=== PATIENT | female | born 2000 | race Caucasian/White ===

== ENCOUNTER → 2023-10-20 09:50 | Outpatient (REF) | payer OTHER, SELFPAY | LOC: RAD 09:50 | PROVIDERS: ATTENDING PHYSICIAN Obstetrics & Gynecology; FAMILY PHYSICIAN Family Medicine | DX: N94.6 Dysmenorrhea, unspecified (principal) | CPT/HCPCS: 76856 ==

== ENCOUNTER 2024-04-01 10:16 | Emergency (ER) | payer OTHER, SELFPAY ==
[2024-04-01 10:17] VITALS: BP 125/89
[2024-04-01 10:53] LABS: % Basophils 0.6 % (0-2); % Eosinophils 1.9 % (0-6); % Immature Granulocytes 0.3 % (0-0.5); % Lymphocytes 23.7 % (20.5-51.1); % Monocytes 10.6 % (1.7-9.3); % Neutrophils 62.9 % (42.2-75.2); Absolute Eosinophils 0.1 10^3/uL (0-0.7); Absolute Lymphocytes 1.5 10^3/uL (1.2-3.4); Absolute Monocytes 0.7 10^3/uL (0.1-0.6); Hemoglobin 13.3 g/dL (12.0-16.0); Mean Corp Hgb Conc. 34.1 g/dL (33.0-37.0); Mean Corpuscular Hgb 29.8 pg (27.0-31.0); Mean Corpuscular Volume 87.2 fL (81.0-99.0); Mean Platelet Volume 10.5 fL (7.4-10.4); Nucleated Red Blood Cells % 0 %; Platelet Count 227 10^3/uL (130-400); Red Blood Cell Count 4.47 10^6/uL (4.20-5.40); Red Cell Dist. Width 11.9 % (11.5-14.5); White Blood Cell Count 6.3 10^3/uL (4.8-10.8)
[2024-04-01 11:01] LABS: HCG, Serum Qualitative Screen Negative
[2024-04-01 11:04] LABS: ALT (SGPT) 20 U/L (0-35); AST (SGOT) 29 U/L (14-36); Albumin 4.7 g/dl (3.5-5.0); Alkaline Phosphatase 61 U/L (38-126); Blood Urea Nitrogen 12 mg/dl (7-17); Calcium 9.9 mg/dl (8.4-10.2); Carbon Dioxide 26 mmol/L (22-30); Chloride 103 mmol/L (98-107); Glucose 77 mg/dl (70-99); Potassium 4.3 mmol/L (3.5-5.1); Sodium 138 mmol/L (135-145); Total Bilirubin 0.5 mg/dl (0.2-1.3); Total Protein 7.2 g/dl (6.3-8.2); eGFR > 60.00
[2024-04-01 11:17] LABS: Urine Albumin Negative (Neg - Trace); Urine Bilirubin Negative (Negative); Urine Character Clear (Clear); Urine Color Yellow; Urine Glucose Negative (Negative); Urine Ketone Negative (Negative); Urine Leukocyte Negative (Negative); Urine Nitrite Negative (Negative); Urine Occult Blood Negative (Negative); Urine Urobilinogen Negative (Neg - 1+); Urine pH 6.5 (5.0-9.0)
--- NOTE | 2024-04-01 12:21 | ED.GENMED ---
History of Present Illness
General
Chief Complaint: Abdominal Pain
Source: patient
Exam Limitations: none
Time Seen by Provider: 04/01/24 12:12
Nursing documentation reviewed up to this point in time: agreed with
History of Present Illness
History of Present Illness:
23 yo female sent here from PCP office to r/o appendicitis. Pt states she developed mild pain across her lower abdomen yesterday 05/15, same pain woke her at 6:45 this a.m. and by 7:45 was 7/10, took Advil, got worse for about an hour, and has been
waxing and waning since, now 07/13 and seems worse in RLQ. Denies fever/chills, n/v/d/c. Denies UTI symptoms.
LMP ended 2 weeks ago, IUD placed 01/2024, started Monjaro one month ago, takes Nurtec PRN.
Past History
Past History
ED Past Medical History: None
ED Past Surgical History: None
Social History
Tobacco: Non-smoker
Alcohol: Occasional
Personal: Single
Living: with family
Review of Systems
Review of Systems
Allergies reviewed?: Yes
All Other Systems: ROS reviewed and negative except as documented in HPI and ROS
Constitutional: Denies fever
Respiratory: Denies trouble breathing
Cardiac: Denies chest pain
ABD/GI: Reports abdominal pain; Denies nausea, vomiting, diarrhea, constipated, bloody stools, black stools or anorexia
: Denies dysuria, frequency or difficulty voiding
Musculoskeletal: Reports no symptoms
Skin: Reports no symptoms
Neurological: Reports no symptoms
Phy Exam
Physical Exam
Physical Exam:
GENERAL: No acute distress. A&Ox3.
CONSTITUTIONAL: Afebrile.
EYES: clear, conjunctivae normal
ENMT: moist mucus membranes
RESPIRATORY: Regular respirations, nonlabored, lungs clear.
CARDIOVASCULAR: Regular rate and rhythm, no murmurs, no rubs.
GI: Soft, tender suprapubic to RLQ, no rebound, normal BS
MUSCULOSKELETAL: Moves with ease. Well perfused.
SKIN: Warm, dry, pink
PSYCH: Normal mood and affect. Well kept, interactive and appropriate
NEUROLOGIC: Awake, alert and oriented. No focal neurological deficits
Course
Orders/Labs/Results
Orders:
Orders
04/01/24 10:21
Test Result ONCE
04/01/24 10:39
Complete Blood Count/With Diff Urgent
Comprehensive Metabolic Panel Urgent
HCG, Serum Qualitative Screen Urgent
Lipase Urgent
Comment: ADD ON
04/01/24 10:42
Urinalysis Reflex To Culture Urgent
Date Specimen was Collected: 04/01/24
Time Specimen was Collected: 10:20
04/01/24 11:51
Add On- LAB Urgent
Tests Added?: lipase
04/01/24 12:20
CT Abd/Pel (IV only)-DH only Urgent
Comment:
Reason For Exam: Pain mid to R lower abdomen
Abnormal Lab Results
04/01/24
10:39
MPV 10.5 H fL
(7.4-10.4)
Absolute Monos (auto) 0.7 H 10^3/uL
(0.1-0.6)
Monocytes % 10.6 H %
(1.7-9.3)
04/01/24 10:39
04/01/24 10:39
Vital Signs
Initial and Last Documented VS:
Initial Vital Signs
Temp Pulse Resp BP Pulse Ox
98.2 F 87 16 125/89 99
04/01/24 10:17 04/01/24 10:17 04/01/24 10:17 04/01/24 10:17 04/01/24 10:17
Last Documented Vital Signs
Temp Pulse Resp BP Pulse Ox
98.2 F 82 16 113/75 100
04/01/24 10:17 04/01/24 16:19 04/01/24 10:17 04/01/24 16:19 04/01/24 16:19
MDM/Problems Addressed
Differential Diagnosis Includes:
appendicitis, ovarian cyst, middleschmertz
MDM/Problems Addressed:
23 yo female sent here from PCP office to r/o appendicitis. Pt states she developed mild pain across her lower abdomen yesterday 05/15, same pain woke her at 6:45 this a.m. and by 7:45 was 10/12, took Advil, got worse for about an hour, and has been
waxing and waning since, now 07/13 and seems worse in RLQ. Denies fever/chills, n/v/d/c. Denies UTI symptoms.
LMP ended 2 weeks ago, IUD placed 01/2024, started Monjaro one month ago, takes Nurtec PRN.
Afebrile, NAD
Abd: mild tenderness mid lower abdomen to RLQ, no rebound
11:30 a.m.
CBC normal
CMP normal
HCG neg
U/A neg
4:[address] abd/pelvis with IV contrast radiology report read: IMPRESSION:
No acute findings in the abdomen or pelvis, specifically no evidence of acute appendicitis.
Retroflexed uterus with intrauterine device in appropriate position.
Pt is pain free.
Pt ambulated out with normal gait at discharge
*Critical Care Note
Total Time (30-74mins, 75-104mins- exclusive of procedures): Not Applicable
ED Attending Note
-
Portions of this chart may have been created with voice recognition software.� Occasional wrong word or��sound alike� substitutions may have occurred due to the inherent limitations of voice recognition software.
Discharge Plan
Departure
Patient Disposition: Home (Routine Discharge)
Date of Disposition: 04/01/24
Time of Disposition: 16:00
Patient with high blood pressure during this ER visit?: No
Condition: Good
Discharge Problem:
Abdominal pain
Instructions: Abdominal Pain
Prescriptions:
No Action
No Current Medications
0
Referrals:
Kristin Jimenez MD [Family Provider] - As needed
Activity Restrictions/Additional Instructions:
As we discussed, nothing worrisome in your workup here today, specifically no sign of appendicitis or abnormality of the ovaries/uterus or rest of the abdomen.
Ibuprofen 600 mg, with food, every 6 hours as needed for pain.
Interventions
Interventions:
*Risk Screen - Suicide Last Done: 04/01/24 10:20
*General Assessment Last Done: 04/01/24 16:20
*Neglect/Abuse Screening Last Done: 04/01/24 10:20
ED- Fall Risk Assessment Last Done: 04/01/24 16:20
*ED COVID-19 Vaccine History Last Done: 04/01/24 14:19
*Nursing Disposition Last Done: 04/01/24 16:20
GB-Fqtmta-Edvfcvdwdw Assessment Last Done: 04/01/24 14:12
Discharge Date and Time
Discharge Date/Time: 04/01/24 16:28
Print Language: YAKUT
[2024-04-01 12:23] LABS: Lipase 265 U/L (23-300)
[2024-04-01 12:43] VITALS: BMI 27.4
[2024-04-01 16:19] VITALS: BP 113/75
== END 2024-04-01 16:28 | disposition home or self-care (01) ==
LOC: EMR 10:16
PROVIDERS: Emergency Medicine; EMERGENCY PHYSICIAN Emergency Medicine; FAMILY PHYSICIAN Family Medicine
DX: R10.30 Lower abdominal pain, unspecified (principal); Z97.5 Presence of (intrauterine) contraceptive device
CPT/HCPCS: 99284; 74177; 80053; 81003; 83690; 84703; 85025; Q9967

== ENCOUNTER 2024-04-23 00:34 | Emergency (ER) | payer OTHER, SELFPAY ==
[2024-04-23 00:43] VITALS: BP 125/87
[2024-04-23] MEDS: ZOFRAN 4 MG IV (01:18)
[2024-04-23] MEDS: NSS 1000 IV (01:18)
[2024-04-23 01:19] VITALS: BMI 24.1
[2024-04-23 01:20] VITALS: BP 133/96
[2024-04-23 01:40] LABS: HCG, Serum Qualitative Screen Negative
[2024-04-23 01:42] LABS: INR 1.17; PT 15.2 Sec (11.4-14.6)
[2024-04-23 01:45] LABS: D-Dimer 0.28 ug/mlFEU (0.00-0.50)
[2024-04-23 01:51] LABS: % Basophils 0.4 % (0-2); % Immature Granulocytes 0.4 % (0-0.5); % Lymphocytes 10.6 % (20.5-51.1); % Neutrophils 80.6 % (42.2-75.2); ALT (SGPT) 16 U/L (0-35); AST (SGOT) 23 U/L (14-36); Absolute Lymphocytes 1.1 10^3/uL (1.2-3.4); Absolute Monocytes 0.8 10^3/uL (0.1-0.6); Absolute Neutrophils 8.4 10^3/uL (1.4-6.5); Albumin 5.8 g/dl (3.5-5.0); Alkaline Phosphatase 86 U/L (38-126); Blood Urea Nitrogen 9 mg/dl (7-17); Calcium 10.5 mg/dl (8.4-10.2); Carbon Dioxide 8 mmol/L (22-30); Chloride 104 mmol/L (98-107); Estimated Creatinine Clearance 116 ml/min; Glucose 94 mg/dl (70-99); Hematocrit 46.4 % (37.0-47.0); Hemoglobin 15.5 g/dL (12.0-16.0); Magnesium 1.7 mg/dl (1.6-2.3); Mean Corp Hgb Conc. 33.4 g/dL (33.0-37.0); Mean Corpuscular Hgb 28.9 pg (27.0-31.0); Mean Corpuscular Volume 86.6 fL (81.0-99.0); Mean Platelet Volume 11.4 fL (7.4-10.4); Nucleated Red Blood Cells % 0 %; Platelet Count 298 10^3/uL (130-400); Potassium 4.7 mmol/L (3.5-5.1); Red Blood Cell Count 5.36 10^6/uL (4.20-5.40); Red Cell Dist. Width 11.9 % (11.5-14.5); Sodium 142 mmol/L (135-145); White Blood Cell Count 10.4 10^3/uL (4.8-10.8); eGFR > 60.00
[2024-04-23 01:56] LABS: Troponin I < 0.012 ng/ml
[2024-04-23 02:00] VITALS: BP 129/80
--- NOTE | 2024-04-23 02:00 | ED.GENMED ---
History of Present Illness
General
Chief Complaint: Chest Pain
Source: patient and family
Exam Limitations: none
Time Seen by Provider: 04/23/24 00:52
Nursing documentation reviewed up to this point in time: agreed with
History of Present Illness
History of Present Illness:
Pleasant 23-year-old female who presents with nausea and vomiting. Patient does report some central chest pain. She states that after vomiting she felt a burning going up into her chest. She has been vomiting since Wednesday. Tonight she saw
bloody specks in her vomitus. Denies fever or chills. Has been fully immunized for COVID and flu
Past History
Past History
ED Past Medical History: None
ED Past Surgical History: None
Social History
Tobacco: Non-smoker
Alcohol: Occasional
Personal: Single
Living: with family
Review of Systems
Review of Systems
Allergies reviewed?: Yes
All Other Systems: ROS reviewed and negative except as documented in HPI and ROS
Constitutional: Reports no symptoms
EENT: Reports no symptoms
Respiratory: Reports no symptoms
Cardiac: Reports chest pain
ABD/GI: Reports nausea and vomiting; Denies diarrhea, bloody stools or black stools
: Reports no symptoms
Musculoskeletal: Reports no symptoms
Skin: Reports no symptoms
Neurological: Reports no symptoms
Endocrine: Reports no symptoms
Hematologic/Lymphatic: Reports no symptoms
Psychiatric: Reports no symptoms
Phy Exam
General Physical Exam
General Presentation: mild distress
General age: appears stated age
General Skin: warm and dry
General Habitus: normal
General Mental: alert
General Hydration: appears well hydrated
ENT Exam
ENT Exam: EOMI, pharynx normal, neck supple and normocephalic
Eye Exam
Eye Exam: PERRL, cornea clear and conjunctiva normal
Cardiovascular Exam
Cardiovascular Exam: regular rate/rhythm, no edema, no murmur and normal peripheral pulses
Pulmonary Exam
Pulmonary Exam: lungs clear, no respiratory distress, no rales, no crackles, no rhonchi, no stridor, no wheezing and no cough
Gastrointestinal Exam
Gastrointestinal Exam: normal bowel sounds, non tender, soft, no organomegaly, no pulsatile mass and non distended
Neurological Exam
Neurological Exam: alert, oriented x3, no motor deficits and speech normal
Musculoskeletal Exam
Musculoskeletal Exam: full ROM and no edema
Skin Exam
Skin Exam: normal color, warm/dry, no rash and no petechia
Psychiatric Exam
Psychiatric Exam: normal mood/affect
Scores
Heart Score for Chest Pain Patients
STEMI patient?: Not applicable
Course
Orders/Labs/Results
Orders:
Orders
04/23/24 00:37
Electrocardiogram (*1) Urgent
Reason for Study: Chest Pain
04/23/24 00:38
EKG- Treatment ONCE
04/23/24 00:53
Test Result ONCE
04/23/24 01:10
Complete Blood Count/With Diff Urgent
Comprehensive Metabolic Panel Urgent
D-Dimer Urgent
HCG, Serum Qualitative Screen Urgent
Magnesium Urgent
PTT Urgent
Prothrombin Time Urgent
TSH Urgent
Troponin I Urgent
04/23/24 01:17
0.9% Sodium Chloride 1000 ml [Nss] 1,000 ml IV BOLUS
04/23/24 01:18
Ondansetron Injectable [Zofran] 4 mg IV NOW STA
04/23/24 01:59
Metoclopramide [Reglan] 10 mg IV NOW STA
Sucralfate Suspension [Carafate Suspension] 1 gm PO NOW STA
04/23/24 02:16
COVID-19 Antigen Urgent
Source: Nasal Swab
Influenza A+B Rapid Molecular Urgent
[facility] Source: Nasal Swab
Specimen Description:
Abnormal Lab Results
04/23/24
01:10
MPV 11.4 H fL
(7.4-10.4)
Absolute Neuts (auto) 8.4 H 10^3/uL
(1.4-6.5)
Absolute Lymphs (auto) 1.1 L 10^3/uL
(1.2-3.4)
Absolute Monos (auto) 0.8 H 10^3/uL
(0.1-0.6)
Neutrophils % 80.6 H %
(42.2-75.2)
Lymphocytes % 10.6 L %
(20.5-51.1)
PT 15.2 H Sec
(11.4-14.6)
Carbon Dioxide 8 L* mmol/L
(22-30)
Calcium 10.5 H mg/dl
(8.4-10.2)
Total Protein 9.0 H g/dl
(6.3-8.2)
Albumin 5.8 H g/dl
(3.5-5.0)
04/23/24 01:10
04/23/24 01:10
Vital Signs
Initial and Last Documented VS:
Initial Vital Signs
Temp Pulse Resp BP Pulse Ox
98.3 F 115 18 125/87 99
04/23/24 00:43 04/23/24 00:43 04/23/24 00:43 04/23/24 00:43 04/23/24 00:43
Last Documented Vital Signs
Temp Pulse Resp BP Pulse Ox
98.3 F 124 17 136/77 100
04/23/24 00:43 04/23/24 03:30 04/23/24 03:30 04/23/24 03:00 04/23/24 03:30
*Critical Care Note
Total Time (30-74mins, 75-104mins- exclusive of procedures): Not Applicable
Update Note
Update Note:
Patient feeling much better and wishes to be discharged home. She is tolerating p.o. She states that the Reglan worked. I will prescribe
ED Attending Note
-
Portions of this chart may have been created with voice recognition software.� Occasional wrong word or��sound alike� substitutions may have occurred due to the inherent limitations of voice recognition software.
Discharge Plan
Departure
Patient Disposition: Home (Routine Discharge)
Date of Disposition: 04/23/24
Time of Disposition: 03:02
Patient with high blood pressure during this ER visit?: Yes
Condition: Good
Discharge Problem:
Nausea & vomiting, Chest pain due to GERD
Instructions: Acid Reflux and GERD in Adults (DC), BLOOD PRESSURE, Acute Nausea and Vomiting
Prescriptions:
New
metoclopramide HCl [Reglan] 10 mg tablet
10 mg PO ACHS Qty: 10 0RF
sucralfate [Carafate] 100 mg/mL suspension
10 ml PO QID Qty: 200 0RF
Referrals:
Kristin Jimenez MD [Family Provider] -
Activity Restrictions/Additional Instructions:
Your prescriptions were sent electronically to the pharmacy that you specified.
It was a pleasure meeting you and taking part in your care. We hope for your continued healing and wellness.
Please read discharge instructions in their entirety. However, they are for general education and may not describe your exact diagnosis at discharge. Information on your ER visit and medical conditions were discussed with you along with appropriate
follow up information...
If indicated, please take your medications as instructed and indicated on discharge paperwork.
Please schedule a follow up appointment as directed. Call to schedule an appointment
Please return to the emergency department with ANY change in, persisting, or worsening of symptoms. If any of your symptoms do not improve, or persist, or become more severe within 6-12 hours, please return to the emergency department for further
care.
Please return to the emergency department if you develop a headache, neck pain/stiffness, fever greater than 100.4F, chest pain, shortness of breath, persistent nausea, vomiting, slurred speech, difficulty walking, numbness/tingling, weakness, signs
of infection or any other symptoms that are worrisome to you.
If you have any questions or concerns please do not hesitate to call the Hospital at or E-mail me directly at [email or web address]
Interventions
Interventions:
*Risk Screen - Suicide Last Done: 04/23/24 00:43
*General Assessment Last Done: 04/23/24 00:43
*Neglect/Abuse Screening Last Done: 04/23/24 00:43
ED- Fall Risk Assessment Last Done: 04/23/24 02:35
*ED COVID-19 Vaccine History Last Done: 04/23/24 00:43
*Nursing Disposition Last Done: 04/23/24 03:41
ED- Cardiac Assessment Last Done: 04/23/24 02:35
Discharge Date and Time
Discharge Date/Time: 04/23/24 03:42
Print Language: [id number]
[2024-04-23] MEDS: CARAFATE SUSPENSION 1 GM PO (02:07)
[2024-04-23] MEDS: REGLAN 10 MG IV (02:07)
[2024-04-23 02:32] LABS: TSH 0.82 uIU/ml (0.47-4.68)
[2024-04-23 02:35] LABS: COVID-19 Antigen Negative (Negative)
[2024-04-23 03:00] VITALS: BP 136/77
== END 2024-04-23 03:42 | disposition home or self-care (01) ==
LOC: EMR 00:34
PROVIDERS: EMERGENCY PHYSICIAN Student in an Organized Health Care Education/Training Program; FAMILY PHYSICIAN Family Medicine
DX: R11.2 Nausea with vomiting, unspecified (principal); K21.9 Gastro-esophageal reflux disease without esophagitis; Z11.52 Encounter for screening for COVID-19
CPT/HCPCS: 99284; 96374; 96375; 96361; 80053; 83735; 84443; 84484; 84703; 85025; 85379; 85610; 85730; 87502; 87811; 93005